=== PATIENT | male | born 1960 | race Caucasian/White ===

== ENCOUNTER → 2021-04-28 | Outpatient (REF) | LOC: M LABSMTC 09:05 | PROVIDERS: ATTEND Family Medicine | DX: Z11.52 Encounter for screening for COVID-19 (principal) ==

== ENCOUNTER 2021-06-25 13:30 | Emergency (ER) | payer OTHER ==
[~2021-06-25] VITALS: Ht 175.3 cm; Wt 71.4 kg
[2021-06-25 13:30] VITALS: BP 175/94
== END 2021-06-25 15:25 | disposition home or self-care (01) ==
LOC: M ED 15:19
DX: S20.212A Contusion of left front wall of thorax, initial encounter (principal); W51.XXXA Accidental striking against or bumped into by another person, initial encounter; Y92.9 Unspecified place or not applicable; Y93.9 Activity, unspecified; Y99.0 Civilian activity done for income or pay; I25.2 Old myocardial infarction; I10 Essential (primary) hypertension; E78.5 Hyperlipidemia, unspecified; F17.210 Nicotine dependence, cigarettes, uncomplicated